=== PATIENT | female | born 1955 ===

== ENCOUNTER 2023-08-24 11:06 | Outpatient (CLI) | payer OTHER | END 2023-08-24 11:11 | disposition home or self-care (01) | LOC: RAD 11:06 | PROVIDERS: ATTEND Orthopaedic Surgery | DX: M75.122 Complete rotator cuff tear or rupture of left shoulder, not specified as traumatic (principal); Z76.89 Persons encountering health services in other specified circumstances ==

== ENCOUNTER → 2023-08-26 09:13 | Outpatient (CLI) | payer OTHER ==
[2023-08-26 10:05] LABS: HEMATOCRIT 35.7 % (36.0-45.00); HEMOGLOBIN 12.2 g/dL (12.0-15.00); MEAN CELL VOLUME 87.9 fL (80.00-100.00); MEAN CORPUSCULAR HEMOGLOBIN 29.9 pg (27.00-32.0); MEAN CORPUSCULAR HGB CONC 34.1 g/dl (32.0-36.0); PLATELET COUNT 229 K/uL (150-450); RED BLOOD COUNT 4.06 M/uL (4.00-6.00); RED CELL DISTRIBUTION WIDTH 15.2 % (11.5-14.5)
[2023-08-26 10:32] LABS: INR 1.19; PARTIAL THROMBOPLASTIN TIME 31.8 SECONDS (22.0-34.0); PROTHROMBIN TIME 12.3 SECONDS (9.0-11.5)
[2023-08-26 10:38] LABS: URINE APPEARANCE Clear; URINE BILIRRUBIN Negative (NEGATIVE); URINE BLOOD Negative; URINE COLOR Yellow; URINE GLUCOSE Negative (NEGATIVE); URINE LEUKOCYTE Small; URINE NITRATE Negative; URINE PROTEIN Negative (NEGATIVE)
[2023-08-26 10:43] LABS: URINE BACTERIA 36.5 uL (0.0-1933); URINE EPITHELIAL CELLS 22.2 uL (0.0-38.8); URINE WBC 7.8 uL (0.0-23.2)
[2023-08-26 10:50] LABS: ALBUMIN 3.6 gm/dL (3.4-5.0); BILIRUBIN TOTAL 0.57 mg/dL (0.3-1.2); CALCIUM 9.4 mg/dL (8.5-10.1); CREATININE SERUM 1.04 mg/dL (0.55-1.02); GFR 52.85; GLOBULINA 3.3 G/DL (2.4-3.5); POTASSIUM 4.73 mEq/L (3.5-5.1); TOTAL PROTEIN 6.9 gm/dL (6.4-8.2)
== END | disposition home or self-care (01) ==
LOC: RAD 09:13
PROVIDERS: ATTEND Orthopaedic Surgery
DX: D64.9 Anemia, unspecified (principal); E88.89 Other specified metabolic disorders; D68.8 Other specified coagulation defects; N39.0 Urinary tract infection, site not specified; Z22.322 Carrier or suspected carrier of Methicillin resistant Staphylococcus aureus; I10 Essential (primary) hypertension; Z76.89 Persons encountering health services in other specified circumstances

== ENCOUNTER 2023-09-05 10:07 | Day surgery (SDC) | payer OTHER ==
[~2023-09-05 10:07] MED LIST: COZAAR25 MG PO; FLECAINIDE ACET50 MG PO; GRALISE600 MG PO; JANUVIA100 MG PO; LIPITOR40 M1 PO; MONTELUKAST SOD10 MG PO; PEPCID AC20 MG PO; PIOGLITAZ-GLIM1 EAC1 PO; TOPROL XL100 M1 PO; TRELEGY ELLIPT1 EACH IH; XARELTO20 MG PO
[2023-09-05] MEDS ORDERED: LIDOCAINE HCL 1%/EPINEPHRINE 20ML VIAL IJ ONE ×2 (13:03→13:04)
[2023-09-05] MEDS ORDERED: EPINEPHRINE HCL/PF 1 MG/ML AMPUL ONE (13:03)
[2023-09-05] MEDS ORDERED: CEFAZOLIN SODIUM 1,000 MG VIAL ONE (13:04)
[2023-09-05] MEDS ORDERED: BUPIVACAINE HCL 30 ML VIAL IJ ONE (14:30)
[2023-09-05] MEDS ORDERED: SUGAMMADEX SODIUM 200 MG/2 ML VIAL IV ONE (16:05)
[2023-09-05] MEDS ORDERED: MORPHINE SULFATE 4 MG/ML VIAL IV ONE ×2 (17:20→20:35)
[2023-09-05] MEDS ORDERED: ONDANSETRON HCL 2 MG/ML VIAL ONE (17:50)
[2023-09-05] MEDS ORDERED: ONDANSETRON HCL 2 MG/ML VIAL IV ONE (18:00)
[2023-09-05 18:46] LABS: ALT/SGPT 14 U/L (12-78); AST/SGOT 10 U/L (15-37); LDH 233 U/L (84-246); PHOSPHOKINASE CREATININE 131 U/L (26-192)
[2023-09-05 20:24] LABS: ABG PH 7.348 (7.35-7.45); ABG pCO2 41.1 mmHg (35-45); SaO2 99.7 %
[2023-09-05 20:25] LABS: BASE EXCESS -3.4 mmol/l; BICARBONATE 22.1 mmol/l (23-25); Tco2 23.3 mmol/l; allen test SATISFACTORY; o2 28 %; puncture site RADIAL RIGHT
== END 2023-09-05 21:40 | disposition home or self-care (01) ==
LOC: CIR.AMB 10:07
PROVIDERS: ATTEND Orthopaedic Surgery
DX: M75.122 Complete rotator cuff tear or rupture of left shoulder, not specified as traumatic (principal); M19.012 Primary osteoarthritis, left shoulder; M65.812 Other synovitis and tenosynovitis, left shoulder; I10 Essential (primary) hypertension; J44.9 Chronic obstructive pulmonary disease, unspecified; J43.9 Emphysema, unspecified; E10.9 Type 1 diabetes mellitus without complications; F41.9 Anxiety disorder, unspecified; M19.90 Unspecified osteoarthritis, unspecified site